=== PATIENT | male | born 2000 | race Caucasian/White ===

== ENCOUNTER 2020-06-22 18:00 | Emergency (ER) | payer BC ==
[2020-06-22 18:20] LABS: HEMOGLOBIN 12.1 g/dl (14.0-18.0); IMMATURE GRANULOCYTES 0.3 % (0.0-5.0); MEAN CELL VOLUME 93.2 fL CALC (80.0-100.0); MEAN CORPUSCULAR HGB 30.5 pG CALC (26.0-32.0); MEAN CORPUSCULAR HGB CONC 32.7 g/dL CAL (32.0-36.0); NEUT# 5.52 thou/uL (1.82-7.42); RED BLOOD COUNT 3.97 mill/uL (4.70-6.10); RED CELL DISTRI WIDTH 12.6 % (11.5-15.5)
[2020-06-22 18:52] LABS: ALBUMIN 4.2 g/dL (3.2-5.0); ALKALINE PHOSPHATASE 57 u/l (38-126); ANION GAP 10 (6-22 (CALC)); BILIRUBIN, TOTAL 0.8 mg/dL (0.0-1.4); BUN 9 mg/dL (9-20); BUN/CREATININE RATIO 10 (12-20 (CALC)); CARBON DIOXIDE 28 mmol/l (22-30); CHLORIDE 102 mmol/l (95-108); CPK 70 u/l (52-200); CREATININE 0.9 mg/dL (0.7-1.3); GFR > 60 ML/MIN (>=60 (CALC)); GFR FOR AFR.AMER. > 60 ML/MIN (>=60 (CALC)); LIPASE 13 u/l (23-300); POTASSIUM 3.8 mmol/l (3.5-5.1); SGOT/AST 18 u/l (17-59); SODIUM 136 mmol/l (137-146); TOTAL PROTEIN 6.7 g/dL (6.3-8.2)
[2020-06-22 19:42] LABS: URINE BILIRUBIN - DIPSTICK NEGATIVE (NEGATIVE); URINE BLOOD DIPSTICK NEGATIVE (NEGATIVE); URINE COLOR YELLOW; URINE GLUCOSE - DIPSTICK NEGATIVE (NEGATIVE); URINE KETONE NEGATIVE (NEGATIVE); URINE LEUK ESTERASE NEGATIVE (NEGATIVE); URINE PROTEIN - DIPSTICK NEGATIVE (NEG-TRACE); URINE SPECIFIC GRAVITY 1.015; URINE UROBILINOGEN - DIPSTICK 0.2 E.U./dL (0.2)
[2020-06-22 19:43] LABS: URINE NITRITE - DIPSTICK NEGATIVE (Negative)
[2020-06-22 20:00] VITALS: BP 112/66
== END 2020-06-22 20:00 | disposition home or self-care (01) | DRG 923 ==
LOC: ED 18:00
DX: T67.5XXA Heat exhaustion, unspecified, initial encounter (principal); F17.290 Nicotine dependence, other tobacco product, uncomplicated; X30.XXXA Exposure to excessive natural heat, initial encounter; Y93.89 Activity, other specified; Z20.822 Contact with and (suspected) exposure to COVID-19